=== PATIENT | male | born 1970 | race Hispanic/Latino ===

== ENCOUNTER 2022-03-15 23:55 | Inpatient (IN) | payer OTHER ==
[~2022-03-15] VITALS: Ht 188 cm; Wt 117.9 kg
[2022-03-16] MEDS ORDERED: ACETAMINOPHEN 500 MG TABLET PO ONE (00:30)
[2022-03-16] MEDS ORDERED: 0.9%NACL 1000ML 1,000 ML IV ONE ×2 (00:30→04:30)
[2022-03-16 00:36] LABS: BASOPHILS % (AUTO) 0.4 % (0.0-5.0); HEMATOCRIT 40.7 % (42-54); LYMPHOCYTES % (AUTO) 7.7 % (21.0-51.0); MEAN CORPUSCULAR HEMOGLOBIN 28.2 pg (27.0-33.0); MEAN CORPUSCULAR HGB CONC 34.9 g/dL (32.0-36.0); MEAN CORPUSCULAR VOLUME 80.9 fL (79-99); MONOCYTES % (AUTO) 2.6 % (3.0-13.0); NEUTROPHILS % (AUTO) 88.4 % (40.0-77.0); PLATELET COUNT (AUTO) 77 K/uL (130-400); RED BLOOD CELL COUNT(AUTO) 5.03 MIL/uL (4.50-6.20); RED CELL DISTRIBUTION WIDTH 13.4 % (11.0-15.5); WHITE BLOOD COUNT (AUTO) 7.4 K/uL (4.8-10.8)
[2022-03-16 00:43] LABS: CREATININE 1.3 mg/dL (0.5-1.5); POTASSIUM 3.2 mmol/L (3.5-5.1)
[2022-03-16 00:48] LABS: ALBUMIN 2.8 g/dL (3.5-5.0); TOTAL PROTEIN, SERUM 7.1 g/dL (6.0-8.3)
[2022-03-16] MEDS ORDERED: PENICILLIN G BENZATHINE LA 1.2 MILUNITS/2 ML SYG IM STA (03:49)
[2022-03-16] MEDS ORDERED: PENICILLIN G BENZATHINE LA 1.2 MILUNITS/2 ML SYG ONE (03:49)
[2022-03-16] MEDS ORDERED: CEFTRIAXONE 1G VIAL IVP ONE (04:00)
[2022-03-16] MEDS ORDERED: PENICILLIN G BENZATHINE LA 1.2 MILUNITS/2 ML SYG IM ONE (04:00)
[2022-03-16] MEDS: CEFTRIAXONE 1G VIAL IVP SCH (04:22)
[2022-03-16] MEDS ORDERED: ONDANSETRON ODT 4MG TAB SL PRN (04:30)
[2022-03-16 05:15] VITALS: BP 117/65
[2022-03-16] MEDS ORDERED: IBUP-2077 PO (05:24)
[2022-03-16] MEDS ORDERED: METF-444 PO (05:24)
[2022-03-16] MEDS ORDERED: AMOX500C2 PO (05:24)
[2022-03-16] MEDS ORDERED: ONDA-104 PO (05:24)
[2022-03-16] MEDS: INSULIN HUMULIN R 100 UNIT/ML 3ML SQ SCH ×4 (06:47→21:00)
[2022-03-16] MEDS: DOXYCYCLINE HYCLATE 100 MG TABLET PO SCH ×2 (08:26→21:56)
[2022-03-16] MEDS: KCL 20 MEQ ERTAB PO PRN ×3 (08:26→17:15)
[2022-03-16 08:27] VITALS: BP 129/72
[2022-03-16] MEDS ORDERED: LIDOCAINE HCL-MPF 1% 2ML VIAL IV PRN (08:30)
[2022-03-16] MEDS ORDERED: POTASSIUM CHLORIDE 20MEQ/100ML 100 ML IV PRN (08:30)
[2022-03-16] MEDS: ACETAMINOPHEN 325 MG TAB PO PRN ×2 (08:31→17:16)
[2022-03-16] MEDS: ENOXAPARIN SODIUM 30 MG/0.3 ML SQ SCH (09:00)
[2022-03-16 12:10] VITALS: BP 109/61
[2022-03-16] MEDS: 0.9%NACL 1000ML 1,000 ML IV SCH (13:28)
[2022-03-16 16:20] VITALS: BP 121/61
[2022-03-16 20:00] VITALS: BP 102/66
[2022-03-16 23:55] VITALS: BP 134/76
[2022-03-17 04:00] VITALS: BP 128/70
[2022-03-17] MEDS: 0.9%NACL 1000ML 1,000 ML IV SCH ×2 (04:25→20:27)
[2022-03-17] MEDS: CEFTRIAXONE 1G VIAL IVP SCH (04:25)
[2022-03-17 06:27] LABS: BASOPHILS % (AUTO) 0.2 % (0.0-5.0); HEMATOCRIT 33.9 % (42-54); LYMPHOCYTES % (AUTO) 8.4 % (21.0-51.0); MEAN CORPUSCULAR HEMOGLOBIN 27.7 pg (27.0-33.0); MEAN CORPUSCULAR VOLUME 83.9 fL (79-99); MONOCYTES % (AUTO) 3.1 % (3.0-13.0); NEUTROPHILS % (AUTO) 87.2 % (40.0-77.0); PLATELET COUNT (AUTO) 67 K/uL (130-400); RED BLOOD CELL COUNT(AUTO) 4.04 MIL/uL (4.50-6.20); RED CELL DISTRIBUTION WIDTH 13.9 % (11.0-15.5); WHITE BLOOD COUNT (AUTO) 8.4 K/uL (4.8-10.8)
[2022-03-17] MEDS: INSULIN HUMULIN R 100 UNIT/ML 3ML SQ SCH ×4 (06:31→20:31)
[2022-03-17 06:38] LABS: HEMOGLOBIN A1C 9.2 % (4.0-6.0)
[2022-03-17 06:51] LABS: CREATININE 1.1 mg/dL (0.5-1.5); POTASSIUM 3.6 mmol/L (3.5-5.1); TOTAL PROTEIN, SERUM 5.4 g/dL (6.0-8.3)
[2022-03-17 08:25] VITALS: BP 118/68
[2022-03-17] MEDS: ENOXAPARIN SODIUM 30 MG/0.3 ML SQ SCH (09:00)
[2022-03-17] MEDS: DOXYCYCLINE HYCLATE 100 MG TABLET PO SCH ×2 (09:50→20:26)
[2022-03-17] MEDS: KCL 20 MEQ ERTAB PO PRN (09:53)
[2022-03-17] MEDS: FLUCONAZOLE 100 MG TAB PO SCH (12:02)
[2022-03-17 12:09] VITALS: BP 112/63
[2022-03-17] MEDS: POTASSIUM CHLORIDE 10% ELIXIR 20 MEQ/15 ML UDCUP PO PRN (15:52)
[2022-03-17 16:18] VITALS: BP 110/68
[2022-03-17 20:32] VITALS: BP 132/70
[2022-03-17 23:27] VITALS: BP 116/66
[2022-03-18 04:02] VITALS: BP 122/67
[2022-03-18] MEDS: CEFTRIAXONE 1G VIAL IVP SCH (04:28)
[2022-03-18 05:35] LABS: HEMATOCRIT 33.5 % (42-54); MEAN CORPUSCULAR HEMOGLOBIN 27.6 pg (27.0-33.0); MEAN CORPUSCULAR HGB CONC 32.8 g/dL (32.0-36.0); RED BLOOD CELL COUNT(AUTO) 3.99 MIL/uL (4.50-6.20); RED CELL DISTRIBUTION WIDTH 14.3 % (11.0-15.5); WHITE BLOOD COUNT (AUTO) 8.9 K/uL (4.8-10.8)
[2022-03-18 06:04] LABS: ALBUMIN 1.9 g/dL (3.5-5.0); CREATININE 0.9 mg/dL (0.5-1.5); MAGNESIUM 2.3 mg/dL (1.80-2.40); POTASSIUM 3.3 mmol/L (3.5-5.1); TOTAL PROTEIN, SERUM 5.5 g/dL (6.0-8.3)
[2022-03-18] MEDS: INSULIN HUMULIN R 100 UNIT/ML 3ML SQ SCH ×4 (06:04→21:00)
[2022-03-18] MEDS: POTASSIUM CHLORIDE 10% ELIXIR 20 MEQ/15 ML UDCUP PO PRN (06:33)
[2022-03-18 08:10] VITALS: BP 126/76
[2022-03-18] MEDS: KCL 20 MEQ ERTAB PO PRN ×2 (09:16→14:13)
[2022-03-18] MEDS: DOXYCYCLINE HYCLATE 100 MG TABLET PO SCH ×2 (09:16→21:28)
[2022-03-18] MEDS: 0.9%NACL 1000ML 1,000 ML IV SCH ×2 (09:17→21:36)
[2022-03-18] MEDS: FLUCONAZOLE 100 MG TAB PO SCH (11:49)
[2022-03-18 12:12] VITALS: BP 131/75
[2022-03-18 16:16] VITALS: BP 131/83
[2022-03-18 21:02] VITALS: BP 124/72
[2022-03-19 00:02] VITALS: BP 113/69
[2022-03-19] MEDS: CEFTRIAXONE 1G VIAL IVP SCH (03:56)
[2022-03-19] MEDS: 0.9%NACL 1000ML 1,000 ML IV SCH (03:56)
[2022-03-19 05:03] VITALS: BP 117/65
[2022-03-19] MEDS: INSULIN HUMULIN R 100 UNIT/ML 3ML SQ SCH ×4 (05:22→20:33)
[2022-03-19 05:45] LABS: HEMATOCRIT 33.6 % (42-54); MEAN CORPUSCULAR HEMOGLOBIN 28.2 pg (27.0-33.0); MEAN CORPUSCULAR HGB CONC 32.4 g/dL (32.0-36.0); MEAN CORPUSCULAR VOLUME 86.8 fL (79-99); RED BLOOD CELL COUNT(AUTO) 3.87 MIL/uL (4.50-6.20); RED CELL DISTRIBUTION WIDTH 14.5 % (11.0-15.5); WHITE BLOOD COUNT (AUTO) 9.9 K/uL (4.8-10.8)
[2022-03-19 05:59] LABS: CREATININE 0.9 mg/dL (0.5-1.5); MAGNESIUM 2.3 mg/dL (1.80-2.40); POTASSIUM 3.5 mmol/L (3.5-5.1)
[2022-03-19 07:30] VITALS: BP_SYST 117; BP_SYST 122; BP_DIAS 67; BP_DIAS 68
[2022-03-19] MEDS: DOXYCYCLINE HYCLATE 100 MG TABLET PO SCH ×2 (09:23→20:27)
[2022-03-19 11:30] VITALS: BP 129/80
[2022-03-19] MEDS: FLUCONAZOLE 100 MG TAB PO SCH (14:19)
[2022-03-19 15:30] VITALS: BP 137/78
[2022-03-19 20:15] VITALS: BP 108/69
[2022-03-20 00:20] VITALS: BP 135/79
[2022-03-20] MEDS: 0.9%NACL 1000ML 1,000 ML IV SCH ×3 (01:29→23:42)
[2022-03-20 04:15] VITALS: BP 126/72
[2022-03-20] MEDS: CEFTRIAXONE 1G VIAL IVP SCH (04:49)
[2022-03-20] MEDS: INSULIN HUMULIN R 100 UNIT/ML 3ML SQ SCH ×4 (06:47→21:00)
[2022-03-20 07:30] VITALS: BP 128/73
[2022-03-20] MEDS: DOXYCYCLINE HYCLATE 100 MG TABLET PO SCH ×2 (09:58→21:36)
[2022-03-20 10:14] LABS: HEMATOCRIT 32.9 % (42-54); MEAN CORPUSCULAR HEMOGLOBIN 27.1 pg (27.0-33.0); MEAN CORPUSCULAR HGB CONC 31.6 g/dL (32.0-36.0); MEAN CORPUSCULAR VOLUME 85.7 fL (79-99); RED BLOOD CELL COUNT(AUTO) 3.84 MIL/uL (4.50-6.20); RED CELL DISTRIBUTION WIDTH 14.7 % (11.0-15.5); WHITE BLOOD COUNT (AUTO) 8.4 K/uL (4.8-10.8)
[2022-03-20 10:24] LABS: CREATININE 0.8 mg/dL (0.5-1.5); POTASSIUM 3.4 mmol/L (3.5-5.1)
[2022-03-20 11:31] VITALS: BP 139/81
[2022-03-20] MEDS: FLUCONAZOLE 100 MG TAB PO SCH (13:53)
[2022-03-20 15:30] VITALS: BP 144/85
[2022-03-20 20:00] VITALS: BP 140/82
[2022-03-21] VITALS (7 sets, daily range): BP systolic 127–154; BP diastolic 73–83
[2022-03-21] MEDS: CEFTRIAXONE 1G VIAL IVP SCH (03:46)
[2022-03-21] MEDS: INSULIN HUMULIN R 100 UNIT/ML 3ML SQ SCH ×4 (07:27→21:10)
[2022-03-21 09:31] LABS: HEMATOCRIT 32.3 % (42-54); MEAN CORPUSCULAR HEMOGLOBIN 28.2 pg (27.0-33.0); MEAN CORPUSCULAR HGB CONC 32.5 g/dL (32.0-36.0); MEAN CORPUSCULAR VOLUME 86.8 fL (79-99); RED BLOOD CELL COUNT(AUTO) 3.72 MIL/uL (4.50-6.20); RED CELL DISTRIBUTION WIDTH 14.6 % (11.0-15.5); WHITE BLOOD COUNT (AUTO) 7.4 K/uL (4.8-10.8)
[2022-03-21] MEDS: DOXYCYCLINE HYCLATE 100 MG TABLET PO SCH ×2 (09:39→21:05)
[2022-03-21 09:41] LABS: CREATININE 0.8 mg/dL (0.5-1.5); POTASSIUM 3.7 mmol/L (3.5-5.1)
[2022-03-21] MEDS: FLUCONAZOLE 100 MG TAB PO SCH (11:22)
[2022-03-21] MEDS: 0.9%NACL 1000ML 1,000 ML IV SCH (17:26)
[2022-03-22 04:00] VITALS: BP 141/83
[2022-03-22] MEDS: CEFTRIAXONE 1G VIAL IVP SCH (05:18)
[2022-03-22] MEDS ORDERED: LACTULOSE 20 GM/30 ML UDCUP ONE (05:28)
[2022-03-22 05:30] LABS: HEMATOCRIT 33.5 % (42-54); MEAN CORPUSCULAR HEMOGLOBIN 27.4 pg (27.0-33.0); MEAN CORPUSCULAR HGB CONC 32.2 g/dL (32.0-36.0); RED BLOOD CELL COUNT(AUTO) 3.94 MIL/uL (4.50-6.20); RED CELL DISTRIBUTION WIDTH 14.2 % (11.0-15.5); WHITE BLOOD COUNT (AUTO) 6.9 K/uL (4.8-10.8)
[2022-03-22] MEDS: INSULIN HUMULIN R 100 UNIT/ML 3ML SQ SCH ×2 (05:30→12:16)
[2022-03-22] MEDS ORDERED: LACTULOSE 20 GM/30 ML UDCUP PO PRN (05:30)
[2022-03-22 05:43] LABS: CREATININE 0.8 mg/dL (0.5-1.5); POTASSIUM 3.7 mmol/L (3.5-5.1)
[2022-03-22] MEDS: DOXYCYCLINE HYCLATE 100 MG TABLET PO SCH (07:52)
[2022-03-22] MEDS: 0.9%NACL 1000ML 1,000 ML IV SCH (07:52)
[2022-03-22 08:00] VITALS: BP 129/81
[2022-03-22] MEDS ORDERED: POLYETHYLENE GLYCOL 3350 17 GM POWD.PACK PO SCH (09:00)
[2022-03-22] MEDS: FLUCONAZOLE 100 MG TAB PO SCH (11:04)
[2022-03-22 12:00] VITALS: BP 106/45
[2022-03-22 16:00] VITALS: BP 149/75
== END 2022-03-22 17:30 | disposition home or self-care (01) | DRG 871 ==
LOC: EDH 23:55 → EDHIP 23:56 → 3DH 03-16 05:15
PROVIDERS: ADMIT Internal Medicine Infectious Disease; ATTEND Internal Medicine Infectious Disease
DX: A41.9 Sepsis, unspecified organism (principal); J18.9 Pneumonia, unspecified organism; E87.1 Hypo-osmolality and hyponatremia; A79.9 Rickettsiosis, unspecified; Z20.822 Contact with and (suspected) exposure to COVID-19; E11.9 Type 2 diabetes mellitus without complications; K81.1 Chronic cholecystitis; I10 Essential (primary) hypertension; E66.01 Morbid (severe) obesity due to excess calories; Z83.3 Family history of diabetes mellitus; Z68.33 Body mass index [BMI] 33.0-33.9, adult
CPT/HCPCS: 36415; 71045; 71250; 78226; 80048; 80053; 82948; 83036; 83605; 83735; 85025; 85027; 86757; 87040; 87635; 87804; 87880; 99291; A9537; C9803; G0378; J0561; J0696; J1650; J1815; J7030